=== PATIENT | female | born 1960 ===

== ENCOUNTER 2021-03-08 22:35 | Emergency (ER) | payer SELFPAY ==
[~2021-03-08] VITALS: Ht 157.5 cm; Wt 57.3 kg
[2021-03-08 22:51] VITALS: BP 116/83
== END 2021-03-08 23:09 ==
LOC: ER 22:36
DX: S10.91XA Abrasion of unspecified part of neck, initial encounter (principal); H57.12 Ocular pain, left eye; R68.84 Jaw pain; Z88.8 Allergy status to other drugs, medicaments and biological substances; W22.11XA Striking against or struck by driver side automobile airbag, initial encounter; Y93.89 Activity, other specified; Y92.89 Other specified places as the place of occurrence of the external cause; Y99.8 Other external cause status
CPT/HCPCS: 99283